=== PATIENT | female | born 1965 | race Caucasian/White ===

== ENCOUNTER 2018-11-20 12:08 | Emergency (ER) | payer SELFPAY ==
[~2018-11-20] VITALS: Ht 170.2 cm; Wt 61.7 kg
[2018-11-20 12:44] LABS: Source, Urine Clean Catch
[2018-11-20 12:59] LABS: Bilirubin, Urine Neg (Neg); Blood, Urine 5+ (Neg); Glucose Qualitative, Urine Neg (Neg); Ketones, Urine 1+ (Neg); Leukocyte Esterase, Urine 3+ (Neg); Nitrite, Urine Neg (Neg); Protein, Urine 3+ (Neg); Urobilinogen, Urine NORM (Normal)
[2018-11-20 13:02] LABS: Appearance, Urine Cloudy (Clear); Color, Urine Yellow (P-Yellow)
[2018-11-20 13:05] LABS: Squamous Epithelial Cells Mod /hpf (Few)
[2018-11-20 13:06] LABS: Bacteria Many /hpf
[2018-11-20] MEDS ORDERED: Macrobid 100 M100 MG PO (13:45)
== END 2018-11-20 14:03 | disposition home or self-care (01) ==
LOC: ER 12:08
PROVIDERS: Emergency Medicine
DX: N39.0 Urinary tract infection, site not specified (principal); Z88.0 Allergy status to penicillin; Z88.1 Allergy status to other antibiotic agents
CPT/HCPCS: 81001; 87077; 87086; 87186; 99283

== ENCOUNTER 2019-06-16 18:29 | Emergency (ER) | payer SELFPAY ==
[~2019-06-16] VITALS: Ht 170.2 cm; Wt 61.2 kg
[~2019-06-16 18:29] MED LIST: Macrobid 100 M100 MG PO
[2019-06-16] MEDS ORDERED: MULTIPLE VITAM1 EACH PO (19:56)
== END 2019-06-16 20:30 | disposition home or self-care (01) ==
LOC: ER 18:29
DX: S70.02XA Contusion of left hip, initial encounter (principal); S40.012A Contusion of left shoulder, initial encounter; Z88.0 Allergy status to penicillin; Z88.1 Allergy status to other antibiotic agents; W10.9XXA Fall (on) (from) unspecified stairs and steps, initial encounter
CPT/HCPCS: 73030; 73502; 99283-25

== ENCOUNTER 2020-05-04 11:03 | Emergency (ER) | payer OTHER ==
[~2020-05-04] VITALS: Ht 170.2 cm; Wt 63.5 kg
[~2020-05-04 11:03] MED LIST changes: +MULTIPLE VITAM1 EACH PO
[2020-05-04 12:10] LABS: Source, Urine Clean Catch
[2020-05-04 12:15] LABS: Appearance, Urine Cloudy (Clear); Bilirubin, Urine Neg (Neg); Blood, Urine 5+ (Neg); Color, Urine Yellow (P-Yellow); Glucose Qualitative, Urine Neg (Neg); Ketones, Urine Neg (Neg); Leukocyte Esterase, Urine 3+ (Neg); Nitrite, Urine Neg (Neg); Protein, Urine 2+ (Neg); Specific Gravity, Urine 1.015 (1.003-1.022); Urobilinogen, Urine NORM (Normal)
[2020-05-04 12:27] LABS: Red Blood Cells, Urine TNTC /hpf (0-2); White Blood Cells, Urine TNTC /hpf (0-5)
[2020-05-04 12:28] LABS: Bacteria Few /hpf; Squamous Epithelial Cells Few /hpf (Few)
[2020-05-04] MEDS ORDERED: CEFP200 PO (12:47)
== END 2020-05-04 12:50 | disposition home or self-care (01) ==
LOC: ER 11:03
PROVIDERS: Emergency Medicine
DX: N39.0 Urinary tract infection, site not specified (principal); Z88.0 Allergy status to penicillin; Z88.1 Allergy status to other antibiotic agents
CPT/HCPCS: 81001; 87077; 87086; 87186; 99283

== ENCOUNTER → 2020-08-09 | Outpatient (CLI) | payer OTHER ==
[~2020-08-09] MED LIST changes: +CEFP200 PO
== END | disposition home or self-care (01) ==
LOC: LAB SHORT 19:05
DX: R30.0 Dysuria (principal)
CPT/HCPCS: 87086

== ENCOUNTER 2021-07-03 10:12 | Emergency (ER) | payer OTHER ==
[~2021-07-03] VITALS: Ht 170.2 cm; Wt 67.1 kg
[2021-07-03] MEDS ORDERED: Ativan0.5 MG PO (10:27)
== END 2021-07-03 10:29 | disposition home or self-care (01) ==
LOC: ER 10:12
DX: F41.9 Anxiety disorder, unspecified (principal); R03.0 Elevated blood-pressure reading, without diagnosis of hypertension; Z88.0 Allergy status to penicillin
CPT/HCPCS: 99283

== ENCOUNTER 2022-09-08 10:57 | Emergency (ER) | payer OTHER ==
[~2022-09-08] VITALS: Ht 170.2 cm; Wt 69.0 kg
[~2022-09-08 10:57] MED LIST changes: +Ativan0.5 MG PO
[2022-09-08 11:42] VITALS: BP 202/148
[2022-09-08] MEDS ORDERED: HYDR1TAB94 PO (11:48)
[2022-09-08] MEDS ORDERED: CEFP200 PO (11:48)
== END 2022-09-08 11:49 | disposition home or self-care (01) ==
LOC: ER 10:57
DX: K04.7 Periapical abscess without sinus (principal); Z88.0 Allergy status to penicillin; Z88.1 Allergy status to other antibiotic agents; Z79.899 Other long term (current) drug therapy
CPT/HCPCS: 99282

== ENCOUNTER → 2023-05-02 | Outpatient (CLI) | payer OTHER ==
[~2023-05-02] MED LIST changes: +HYDR1TAB94 PO
== END | disposition home or self-care (01) ==
LOC: LAB 15:54 → LAB SHORT 15:54
DX: N39.0 Urinary tract infection, site not specified (principal)
CPT/HCPCS: 87077; 87086; 87186